=== PATIENT | female | born 1970 | race Hispanic/Latino ===

== ENCOUNTER 2021-12-25 12:54 | Emergency (ER) | payer SELFPAY ==
--- OUTSIDE RECORDS SUMMARY | 2021-12-25 12:56 | XMS REPORT | Continuity of Care Document ---
:1970 Author Organization [facility] t Address [address] [place] [address] Care Team Providers Name Role Phone PCP, PATIENT DOES NOT HAVE A Primary Care Physician Unavaila MICHEAL Mcleod Attending Clinician Unavailable Micheal Solano NP Attending Clinician FRANCI AVILES Attending Clinician Unavailable Franci Dockery Attending Clinician Problems Condition Condition Condition Status Onset Resolution Last Treating Co mments Source Name Details Category Date Date Treatment Clinician Date No known No known Disease Unive rs active active ity of problems problems [facility] Allergies, Adverse Reactions, Alerts Allergy Allergy Status Severity Reaction(s) Onset Inactive Treating Comm ents Source Name Type Date Date Clinician NO KNOWN Drug Active Univers ALLERGIE Class ity of S [facility] Social History Social Habit Start Date Stop Date Quantity Comments Source Exposure to 2021-11-23 2021-12-03 Not sure [facility] SARS-CoV-2 (event) 00:00:00 10:29:00 Medica l Branch Sex Ass[birth year] [facility] 00:00:00 00:00:00 Medical Branch Smoking Status Start Date Stop Date Source Tobacco smoking consumption Univ [facility] Medical unknown Branch Medications Ordered Filled Start Stop Current Ordering Indication Dosage Frequency Signature Comments Components Source Medication Medication Date Date Medication? Clinician (SIG) Name Name levoFLOXaci 2021- Yes [id number] 500mg Take 1 Univers n 500 mg 12-03 tablet by ity o f tablet 00:00: 04:59 mouth [place] 00 :00 every 24 Medical (twenty-fo Branch ur) hours for 3 days. naproxen Yes 550mg Take 1 Univer s sodium 550 9-27 tablet by ity of mg tablet 00:00: mouth 2 [place] 00 (two) Medical times Branch daily with meals. naproxen Yes 550mg Take 1 Univer s sodium 550 9-27 tablet by ity of mg tablet 00:00: mouth 2 [place] 00 (two) Medical times Branch daily with meals. Vital Signs Vital Name Observation Time Observation Value Comments Source Systolic blood 2021-12-13 13:45:00 131 mm[Hg] Univer sity of [facility] Diastolic blood 2021-12-13 13:45:00 68 mm[Hg] [facility] 2021-12-13 13:45:00 67 /min [facility] Body temperature 2021-12-13 13:45:00 36.94 [facility] Respiratory rate 2021-12-13 13:45:00 18 /min [facility] Body weight 2021-12-13 13:45:00 134.718 kg [facility] BMI 2021-12-13 13:45:00 54.32 kg/m2 [facility] Oxygen saturation in 2021-12-13 13:45:00 99 /min [facility] Arterial blood by [facility] Pulse oximetry Branch Systolic blood 2021-12-03 15:30:00 161 mm[Hg] Univer sity [facility] [place] [facility] Diastolic blood 2021-12-03 15:30:00 70 mm[Hg] [facility] 2021-12-03 15:30:00 79 /min [facility] Body temperature 2021-12-03 15:30:00 36.5 [facility] Respiratory rate 2021-12-03 15:30:00 16 /min [facility] Body height 2021-12-03 15:30:00 157.5 cm [facility] Body weight 2021-12-03 15:30:00 134.803 kg [facility] BMI 2021-12-03 15:30:00 54.36 kg/m2 [facility] Oxygen saturation in 2021-12-03 15:30:00 99 /min [facility] Arterial blood by [facility] Pulse oximetry Branch Procedures Procedure Date / Time Performed Performing Clinician Sour e CONSENT/REFUSAL FOR 2021-12-13 13:36:48 Doctor Unassigned, No [facility] [place] [facility] Medical Branch TREATMENT CONSENT/REFUSAL FOR 2021-12-03 15:25:12 Doctor Unassigned, No [facility] [place] [facility] AND Name Medical Branch TREATMENT Encounters Start End Encounter Admission Attending Care Care Encounter Source Date/Time Date/Time Type Type Clinicians Facility Department ID 2021-12-13 2021-12-13 Emergency [facility] [id number] Univers 08:47:00 09:36:00 MICHEAL ladd [facility] 2021-12-13 2021-12-13 Emergency [facility] [id number] Univers 08:47:00 09:36:00 Micheal Renetta DOMÍNGUEZ [id number] ity [facility] [id number] [place] [address] [id number] [place] [id number] Branch 2021-12-03 2021-12-03 Emergency [facility] [id number] Univers 10:31:00 12:21:00 FRANCI ity [facility] 2021-12-03 2021-12-03 Emergency [facility] [id number] Univers 10:31:00 12:21:00 Franci DOMÍNGUEZ [id number] i ty [facility] [id number] [facility] [phone] [place] [id number] Branch Results This patient has no known results.
--- NOTE | 2021-12-25 13:41 | RAD REPORT ---
EXAM DESCRIPTION: RAD - Shoulder Left 2 View - 12/25/2021 1:31 pm CLINICAL HISTORY: PAIN COMPARISON: No comparisons FINDINGS: Mild lateral down slope of the acromion process. Otherwise, no bone or joint abnormality s een.
[2021-12-25] MEDS ORDERED: CYCLOBENZAPRINE 10 MG TAB ONE (14:14)
[2021-12-25 15:44] VITALS: TEMP 98.3
[2021-12-25 15:46] VITALS: BP 120/67; O2SAT 100
--- NOTE | 2021-12-26 10:12 | ER ---
Nurse's Notes [facility] Name: Mary Grace Gonzalez Age: 51 yrs Sex: Female : 1970 Arrival Date: 12/25/2021 Time: 12:56 Bed 9 Private MD: Diagnosis: Strain of muscle(s) and tendon(s) of the rotator cuff of left shoulder Presentation: 12/25 13:05 Chief complaint: Patient states: left shoulder pain radiating down arm. Coronavirus eh3 screen: Vaccine status: Patient reports receiving the 2nd dose of the covid vaccine. Ebola Screen: No symptoms or risks identified at this time. Initial Sepsis Screen: Does the patient meet any 2 criteria? No. Patient's initial sepsis screen is negative. Does the patient have a suspected source of infection? No. Patient's initial sepsis screen is negative. Risk Assessment: Do you want to hurt yourself or someone else? Patient reports no desire to harm self or others. Onset of symptoms was December 24, 2021. 13:05 Method Of Arrival: Ambulatory 3 13:05 Acuity: SHALOM 3 eh3 Triage Assessment: 13:09 General: Appears in no apparent distress. comfortable, Behavior is calm, cooperative, eh3 appropriate for age. Pain: Complains of pain in anterior aspect of left shoulder Pain radiates to left arm Pain currently is 10 out of 10 on a pain scale. Quality of pain is described as shooting, throbbing, Pain began 2-3 days ago. Is continuous, Alleviated by medications. 13:09 Neuro: Level of Consciousness is awake, alert, obeys commands, Oriented to person, eh3 place, time, situation. Cardiovascular: Capillary refill < 3 seconds Patient's skin is warm and dry. Respiratory: Airway is patent Respiratory effort is even, unlabored. Musculoskeletal: Reports pain in left arm and anterior aspect of left shoulder. 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 - Social history:: Smoking status: Patient denies any tobacco usage or history of. Patient/guardian denies using alcohol. Screenin:03 Abuse screen: Denies threats or abuse. Nutritional screening: No deficits noted. bm7 Tuberculosis screening: No symptoms or risk factors identified. Fall Risk None identified. Assessment: 14:03 Reassessment: Patient and/or family updated on plan of care and expected duration. Pain bm7 level reassessed. Patient is alert, oriented x 3, equal unlabored respirations, skin warm/dry/pink. 14:11 General: Appears in no apparent distress. uncomfortable, obese, well groomed, well bm7 developed, Behavior is calm, cooperative, appropriate for age. Pain: Complains of pain in left shoulder Pain does not radiate. Pain currently is 4 out of 10 on a pain scale. Neuro: No deficits noted. Cardiovascular: No deficits noted. Respiratory: No deficits noted. GI: No deficits noted. No signs and/or symptoms were reported involving the gastrointestinal system. : No deficits noted. No signs and/or symptoms were reported regarding the genitourinary system. EENT: No deficits noted. No signs and/or symptoms were reported regarding the EENT system. Derm: No deficits noted. No signs and/or symptoms reported regarding the dermatologic system. Musculoskeletal: Circulation, motion, and sensation intact. Range of motion: limited in left shoulder Reports pain in left shoulder. Vital Signs: 13:05 BP 132 / 59 RA Sitting (auto/lg); Pulse 60; Resp 18; Temp 98.3; Pulse Ox 98% on R/A; eh3 Weight 119.29 kg; Height 5 ft. 2 in. (157.48 cm); Pain 10/10; 14:15 BP 120 / 67; Pulse 58; Resp 14; Pulse Ox 100% on R/A; bm7 13:05 Body Mass Index 48.10 (119.29 kg, 157.48 cm) 3 ED Course: 12:56 Patient arrived in ED. mr 13:09 Triage completed. eh3 13:09 Arm band placed on right wrist. eh3 13:12 Austen Dewitt is PHCP. jl9 13:12 Stanley Musa MD is Attending Physician. jl9 13:33 Shoulder Left (2 View) XRAY In Process Unspecified. EDMS 14:02 Shannon Mckeon, RN is Primary Nurse. bm7 14:03 Patient has correct armband on for positive identification. Bed in low position. Call bm7 light in reach. Client placed on continuous cardiac and pulse oximetry monitoring. NIBP monitoring applied. 14:11 No provider procedures requiring assistance completed. Patient did not have IV access bm7 during this emergency room visit. Administered Medications: 14:10 Drug: Flexeril (cyclobenzaprine) 10 mg Route: PO; bm7 14:35 Follow up: Response: No adverse reaction bm7 Medication: 14:03 VIS not applicable for this client. bm7 Outcome: 14:04 Discharge ordered by MD. palacio 14:35 Discharged to home ambulatory, with family. bm7 14:35 Condition: good 14:35 Discharge instructions given to patient, family, Instructed on discharge instructions, follow up and referral plans. medication usage, Demonstrated understanding of instructions, follow-up care, medications, Prescriptions given X 1. 14:35 Patient left the ED. bm7 Signatures: Dispatcher [employer] Sariah Olvera Brittany, RN RN bm7 Ariana Smith 3 Austen Dewitt9
--- NOTE | 2021-12-26 10:12 | EDPHYS ---
Physician Documentation [facility] Name: Mary Grace Gonzalez Age: 51 yrs Sex: Female : 1970 Arrival Date: 12/25/2021 Time: 12:56 Bed 9 Private MD: ED Physician Stanley Musa HPI: 12/25 14:31 This 51 yrs old Female presents to ER via Ambulatory with complaints of jl9 Shoulder Pain. 13:59 The patient or guardian complains of pain, that is acute. left shoulder. Context: The jl9 patient experiences decreased range of motion, when rotates arm. Onset: The symptoms/episode began/occurred 3 day(s) ago. Modifying factors: The symptoms are aggravated by movement. Associated signs and symptoms: Pertinent positives: Pertinent negatives: Numbness in left arm tingling. Treatment prior to arrival includes: over the counter medications, NSAIDS. Patient described spontaneous shoulder pain, no trauma reported. Improved with OTC medications. . 14:23 The patient has not experienced similar symptoms in the past. The patient has not jl9 recently seen a physician. 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 - Social history:: Smoking status: Patient denies any tobacco usage or history of. Patient/guardian denies using alcohol. ROS: 14:00 Constitutional: Negative for fever, chills, and weight loss, Eyes: Negative for injury, jl9 pain, redness, and discharge, ENT: Negative for injury, pain, and discharge, Neck: Negative for injury, pain, and swelling, Cardiovascular: Negative for chest pain, palpitations, and edema, Respiratory: Negative for shortness of breath, cough, wheezing, and pleuritic chest pain, Abdomen/GI: Negative for abdominal pain, nausea, vomiting, diarrhea, and constipation, Back: Negative for injury and pain. 14:00 Skin: Negative for injury, rash, and discoloration, Neuro: Negative for headache, weakness, numbness, tingling, and seizure, Psych: Negative for depression, anxiety, suicide ideation, homicidal ideation, and hallucinations, Allergy/Immunology: Negative for hives, rash, and allergies, Endocrine: Negative for neck swelling, polydipsia, polyuria, polyphagia, and marked weight changes, Hematologic/Lymphatic: Negative for swollen nodes, abnormal bleeding, and unusual bruising. 14:00 MS/extremity: Positive for pain. 14:23 All other systems are negative. jl9 Exam: 14:01 Constitutional: This is a well developed, well nourished patient who is awake, alert, jl9 and in no acute distress. Head/Face: Normocephalic, atraumatic. Eyes: Pupils equal round and reactive to light, extra-ocular motions intact. Lids and lashes normal. Conjunctiva and sclera are non-icteric and not injected. Cornea within normal limits. Periorbital areas with no swelling, redness, or edema. ENT: Mucous membranes moist. Neck: Trachea midline, no thyromegaly or masses palpated, and no cervical lymphadenopathy. Supple, full range of motion without nuchal rigidity, or vertebral point tenderness. No Meningismus. Chest/axilla: Normal chest wall appearance and motion. Nontender with no deformity. No lesions are appreciated. Cardiovascular: Regular rate and rhythm with a normal S1 and S2. No gallops, murmurs, or rubs. Normal PMI, no JVD. No pulse deficits. Respiratory: Lungs have equal breath sounds bilaterally, clear to auscultation and percussion. No rales, rhonchi or wheezes noted. No increased work of breathing, no retractions or nasal flaring. Abdomen/GI: Soft, non-tender, with normal bowel sounds. No distension or tympany. No guarding or rebound. No evidence of tenderness throughout. Back: No spinal tenderness. No costovertebral tenderness. Full range of motion. Skin: Warm, dry with normal turgor. Normal color with no rashes, no lesions, and no evidence of cellulitis. 14:01 Neuro: Awake and alert, GCS 15, oriented to person, place, time, and situation. Cranial nerves II-XII grossly intact. Motor strength 5/5 in all extremities. Sensory grossly intact. Cerebellar exam normal. Normal gait. Psych: Awake, alert, with orientation to person, place and time. Behavior, mood, and affect are within normal limits. 14:01 Musculoskeletal/extremity: Extremities: Left shoulder pain upon movement. . Vital Signs: 13:05 BP 132 / 59 RA Sitting (auto/lg); Pulse 60; Resp 18; Temp 98.3; Pulse Ox 98% on R/A; 3 Weight 119.29 kg; Height 5 ft. 2 in. (157.48 cm); Pain 10/10; 14:15 BP 120 / 67; Pulse 58; Resp 14; Pulse Ox 100% on R/A; bm7 13:05 Body Mass Index 48.10 (119.29 kg, 157.48 cm) 3 MDM: 13:16 Patient medically screened. jl9 14:02 Data reviewed: vital signs, nurses notes. jl9 12/25 13:21 Order name: Shoulder Left (2 View) XRAY; Complete Time: 13:53 jl9 Administered Medications: 14:10 Drug: Flexeril (cyclobenzaprine) 10 mg Route: PO; bm7 14:35 Follow up: Response: No adverse reaction 7 Disposition Summary: 12/25/21 14:04 Discharge Ordered Location: Home jl9 Condition: Stable jl9 Problem: new jl9 Symptoms: have improved jl9 Diagnosis - Strain of muscle(s) and tendon(s) of the rotator cuff of left shoulder jl9 Followup: jl9 - With: Private Physician - When: 1 - 2 days - Reason: Recheck today's complaints, Continuance of care, Re-evaluation by your physician Discharge Instructions: - Discharge Summary Sheet jl9 - Shoulder Pain, [id number] jl9 Forms: - Medication Reconciliation Form jl9 - Thank You Letter jl9 - Antibiotic Education jl9 - Prescription Opioid Use jl9 Prescriptions: - Cyclobenzaprine 10 mg Oral Tablet - take 1 tablet by ORAL route every 8 hours As needed; 30 tablet; Refills: 0, jl9 Product Selection Permitted Signatures: Dispatcher [employer] Shannon Ruvalcaba, RN RN bm7 Ariana Smith 3 Austen Dewitt jl9
== END 2021-12-25 14:35 | disposition home or self-care (01) ==
LOC: ER 12:54
DX: S46.012A Strain of muscle(s) and tendon(s) of the rotator cuff of left shoulder, initial encounter (principal)
CPT/HCPCS: 99283